=== PATIENT | male | born 1995 ===

== ENCOUNTER 2022-05-01 16:07 | Emergency (ER) | payer SELFPAY ==
[2022-05-01] MEDS ORDERED: Cyclobenzaprine 10 MG Tab PO ONE (16:40)
[2022-05-01] MEDS ORDERED: Ketorolac 60 MG/2 ML SDV IM ONE (16:40)
[2022-05-01] MEDS ORDERED: Cyclobenzaprine 10 MG Tab ONE ×2 (16:41→16:45)
[2022-05-01] MEDS ORDERED: Ketorolac 60 MG/2 ML SDV ONE ×2 (16:41→16:46)
== END 2022-05-01 17:20 ==
LOC: JD.ED 16:07
DX: S39.012A Strain of muscle, fascia and tendon of lower back, initial encounter (principal); Z90.49 Acquired absence of other specified parts of digestive tract; X50.0XXA Overexertion from strenuous movement or load, initial encounter
CPT/HCPCS: 96372; 99283; A9270; J1885